=== PATIENT | male | born 2000 | race Two or more races ===

== ENCOUNTER 2024-11-02 00:16 | Emergency (ER) | payer OTHER, SELFPAY ==
[2024-11-02 00:18] VITALS: BMI 25.0
[2024-11-02 00:49] VITALS: BP 123/79; PULSE 82; RESP 20; TEMP 37; O2SAT 98
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
[2024-11-02] MEDS: ceFAZolin/D5W 1 GM IVPB 1 GM/50 ML BAG IV (01:23)
[2024-11-02] MEDS: HYDROcodone/APAP 5/325 TABLET 1 TAB PO (01:23)
[2024-11-02] MEDS: BACITRACIN OINT 1 GM PACKET TOP (01:24)
[2024-11-02] MEDS: DIPHTH,PERTUSS(ACELL),TET VAC 0.5 ML SYR- ADULT IMi (01:24)
== END 2024-11-02 02:18 | disposition home or self-care (01) ==
LOC: SERX 02:07
PROVIDERS: Emergency Provider Emergency Medicine
DX: S91.102A Unspecified open wound of left great toe without damage to nail, initial encounter (principal); S91.101A Unspecified open wound of right great toe without damage to nail, initial encounter; S91.105A Unspecified open wound of left lesser toe(s) without damage to nail, initial encounter; S91.104A Unspecified open wound of right lesser toe(s) without damage to nail, initial encounter; S91.302A Unspecified open wound, left foot, initial encounter; S91.301A Unspecified open wound, right foot, initial encounter; X58.XXXA Exposure to other specified factors, initial encounter; Y93.02 Activity, running; Y92.89 Other specified places as the place of occurrence of the external cause; Z23 Encounter for immunization
CPT/HCPCS: 90471; 90715; 96365; 99284; J0689; A9270

== ENCOUNTER 2024-11-04 17:49 | Emergency (ER) | payer OTHER, SELFPAY ==
[2024-11-04 18:24] VITALS: BP 115/71; PULSE 60; RESP 16; TEMP 36.8; O2SAT 98; BMI 25.5
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
== END 2024-11-04 19:24 | disposition home or self-care (01) ==
LOC: SERX 19:12
PROVIDERS: Emergency Provider Emergency Medicine
DX: T25.222A Burn of second degree of left foot, initial encounter (principal); T25.221A Burn of second degree of right foot, initial encounter; T31.0 Burns involving less than 10% of body surface
CPT/HCPCS: 99284